=== PATIENT | female | born 1960 | race Caucasian/White ===

== ENCOUNTER 2017-04-09 07:00 | Day surgery (SDC) | payer OTHER ==
[~2017-04-09 07:00] MED LIST: CALCIUM500 M3 PO; CHOLEST OFF450 M1 PO; DAILY VITAMIN1 EAC5 PO; EXCEDRIN MIGRA1 EAC3 PO; IRON325 M3 PO
[2017-04-09 07:46] LABS: BASO % 0.6 % (0-2); EOS % 1.5 % (0-7); EOSINOPHIL ABSOLUTE COUNT 0.1 tho/cmm (0.0-0.7); HGB-HEMOGLOBIN 14.2 gm/dl (12.0-15.5); LYMPH % 34.1 % (20-45); LYMPH ABSOLUTE COUNT 1.6 tho/cmm (0.8-4.5); MCH (MEAN CORPUSCULAR HGB) 30.3 pg (28.0-32.0); MCV (MEAN CELL VOLUME) 91.7 fl (82.0-96.0); MEAN PLATELET VOLUME 9.5 cmc (9.4-12.4); MONO % 7.6 % (0-12); MONOCYTE ABSOLUTE COUNT 0.4 tho/cmm (0.0-1.2); NEUTROPHIL ABSOLUTE COUNT 2.7 tho/cmm (1.6-8.0); NEUTROPHIL-AUTOMATED 2.7 tho/cmm (1.6-8.0); NEUTROPHILS % 56.2 % (40-80); PLATELET COUNT 230 tho/cmm (150-450); RED BLOOD COUNT 4.69 mil/cmm (4.00-5.20); RED CELL DISTRIBUTION WIDTH 13.2 % (12.4-16.4); WHITE BLOOD COUNT 4.7 tho/cmm (4.0-10.0)
[2017-04-09 08:01] LABS: ANION GAP 11 mmol/L (0-20); BLOOD UREA NITROGEN 18 mg/dl (6-24); CALCIUM 8.9 mg/dl (8.5-10.5); CARBON DIOXIDE-VENOUS 24 mmol/L (22-32); CHLORIDE 110 mmol/l (96-110); CREATININE 0.88 mg/dl (0.50-1.10); GLUCOSE 97 mg/dL (70-110); POTASSIUM 4.1 mmol/L (3.7-5.1); SODIUM 141 mmol/L (135-145); eGFR VALUE FOR BLACK 85 mL/Min
== END 2017-04-09 10:30 ==
LOC: SHSB 07:00 → ORW 09:00 → SHSB 09:40
PROVIDERS: Specialist
PROC: 0JBF0ZZ Excision of Left Upper Arm Subcutaneous Tissue and Fascia, Open Approach (ICD-10-PCS; principal; 2017-04-09)
DX: D17.22 Benign lipomatous neoplasm of skin and subcutaneous tissue of left arm (principal); M17.0 Bilateral primary osteoarthritis of knee; R51 Headache; Z79.899 Other long term (current) drug therapy; Z98.890 Other specified postprocedural states
CPT/HCPCS: J0690